=== PATIENT | female | born 1955 | race Caucasian/White ===

== ENCOUNTER 2025-01-14 06:44 | Day surgery (SDC) | payer OTHER, SELFPAY ==
[2025-01-10 09:21] LABS: Hematocrit 41.4 % (37.0-47.0); Hemoglobin 13.3 g/dL (12.0-16.0); Mean Corp Hgb Conc. 32.1 g/dL (33.0-37.0); Mean Corpuscular Volume 90.2 fL (81.0-99.0); Nucleated Red Blood Cells % 0 %; Platelet Count 270 10^3/uL (130-400); Red Cell Dist. Width 13.4 % (11.5-14.5)
[2025-01-10 09:49] LABS: ALT (SGPT) 24 U/L (0-35); AST (SGOT) 24 U/L (14-36); Albumin 4.8 g/dl (3.5-5.0); Alkaline Phosphatase 78 U/L (38-126); Blood Urea Nitrogen 14 mg/dl (7-17); Calcium 9.4 mg/dl (8.4-10.2); Carbon Dioxide 24 mmol/L (22-30); Chloride 110 mmol/L (98-107); Glucose 101 mg/dl (70-99); Potassium 4.8 mmol/L (3.5-5.1); Sodium 142 mmol/L (135-145); Total Protein 7.4 g/dl (6.3-8.2); eGFR > 60.00
[2025-01-10 10:21] LABS: Glycohemoglobin (HgbA1c) 5.7 % (4.0-5.6)
[2025-01-14] VITALS (9 sets, daily range): BP systolic 113–150; BP diastolic 55–85; BMI 26.8
[2025-01-14] MEDS: NORMOSOL-R/PLASMALYTE-A 1000 IV (12:05)
--- NOTE | 2025-01-14 12:06 | W.SUR.PREOP ---
Pre-Operative Surgical Note
-
I have examined this patient prior to the performance of the scheduled procedure.
The patient's condition is unchanged from the time of the current History and
Physical and the patient is able to undergo the scheduled procedure.
[2025-01-14] MEDS: NEURONTIN 300 MG PO (12:08)
[2025-01-14] MEDS: TYLENOL 1000 MG PO (12:08)
[2025-01-14] MEDS: HEPARIN 5000 UNITS SC (12:08)
[2025-01-14] MEDS: CELEBREX 200 MG PO (12:09)
--- NOTE | 2025-01-14 16:02 | OR.RPT ---
Operative Report
Operative Report
Primary Surgeon: Jorden Sawyer
Assisting Surgeon: Elliott Tanner PA-C
Pre-op Diagnosis: Carcinoma in situ vulva
Post-op Diagnosis: Same pending final pathology
Procedure Performed: Partial simple vulvectomy involving posterior fourchette and left labia minora
Anesthesia Type: General, LMA intubation
Specimen / Cultures: Posterior fourchette suture at 6:00, anal margin; left labia
Estimated Blood Loss: 10 cc
Complications: None
Operative Findings: Exam under anesthesia after clipping the hair and application of acetic acid 5% to the skin reveals evidence of irregular shaped pigmented lesion involving posterior fourchette and vestibule and a lesser pigmented lesion is noted
separately in the mid left labia minora. At the completion of surgery all visible abnormalities were removed and the remainder of the external genitalia including vulva urethra and anus appear to be within normal limits
Procedure in detail this patient was taken to the operating room, she was placed in supine position. General anesthesia was administered LMA intubation was completed. She was placed in lithotomy position using yellowfin stirrups, hair from the
perineum and perianal skin was clipped, the patient was prepped with iodine solution and draped. Timeout procedure was carried out. She received prophylactic antibiotics. We went ahead and soaked the genital skin's and 5% acetic acid and
performed a brief colposcopy of the vulva, findings are noted above. Prior to making the incision I injected 1 cc 1% lidocaine with epinephrine over the planned borders of the excision site. A dagmar shape incision was made to include vestibule
and posterior fourchette as well as portion of perineal body and this was excised using needle tip electrocautery the skin was completely removed and excellent hemostasis was present. Further examination revealed there is additional pigmented
lesion in the left labia minora and this was also excised in elliptical fashion. We combine the 2 incisions and begin closing the skin with a series of 3-0 Monocryl sutures placed in a horizontal mattress fashion. All incisions were closed
completely. I injected the incision with 10 additional cc 1% lidocaine with epinephrine and also 10 cc quarter percent Marcaine. We placed Silvadene over the area of excision and sutures. Dressing was placed over the perineum mesh panties were
applied patient was awakened and returned back to recovery room stable awake and extubated condition. Counts of laps instruments and needle was correct x 2. I was present and scrubbed for the entire procedure as dictated above.
Disposition: To PACU stable awake and extubated
== END 2025-01-14 14:24 | disposition home or self-care (01) ==
LOC: SDS 06:44
PROVIDERS: ATTENDING PHYSICIAN Obstetrics & Gynecology Gynecologic Oncology
DX: R87.613 High grade squamous intraepithelial lesion on cytologic smear of cervix (HGSIL) (principal); D07.1 Carcinoma in situ of vulva
CPT/HCPCS: 56620; 36415; 80053; 83036; 85025; 86850; 86900; 86901; 87070; 88309; 88341; 88342; 93005